=== PATIENT | female | born 1965 | race African-American/Black ===

== ENCOUNTER 2016-12-11 23:41 | Emergency (ER) | payer SELFPAY ==
[~2016-12-11] VITALS: Ht 170.2 cm; Wt 63.6 kg
[2016-12-12] MEDS ORDERED: HYDROCODONE/ACETAMINOPHEN 5-325 MG TABLET PO ONE (01:30)
[2016-12-12] MEDS ORDERED: IBUPROFEN 600 MG TABLET PO ONE (01:30)
[2016-12-12 02:40] VITALS: BP 154/81
== END 2016-12-12 02:55 | disposition home or self-care (01) ==
LOC: EMS 23:44
DX: S46.912A Strain of unspecified muscle, fascia and tendon at shoulder and upper arm level, left arm, initial encounter (principal); X58.XXXA Exposure to other specified factors, initial encounter; Y93.89 Activity, other specified; Y92.89 Other specified places as the place of occurrence of the external cause; Y99.8 Other external cause status
CPT/HCPCS: 29240; 99284